=== PATIENT | female | born 1940 | race Caucasian/White ===

== ENCOUNTER 2020-09-01 10:14 | Emergency (ER) | payer MEDICARE, OTHER ==
[2020-09-01] MEDS ORDERED: Sodium Chloride 0.9% 10 ML Syringe FLUSH PRN (10:47)
[2020-09-01] MEDS ORDERED: Nitroglycerin 0.4 MG Tab.SL SL ONE (10:47)
[2020-09-01] MEDS ORDERED: Morphine 2 MG/ML SYRINGE IVPUSH ONE (11:04)
--- NOTE | 2020-09-01 11:57 | CR ---
Chest: Portable view of the chest was obtained. Comparison: No prior chest imaging is available. Soft tissue density is suggested behind the heart possibly due to moderate sized hiatal hernia. Heart is mildly enlarged. Upper mediastinum is within normal limits. Unichamber pacemaker is noted. Lungs are clear with no acute parenchymal change. Scattered disc space narrowing and endplate spurring is noted within the spine. Mild degenerative change is seen within both shoulders. Impression: 1. Possible hiatal hernia. Heart size may be slightly enlarged. Unichamber pacemaker is noted. 2. Nothing acute is appreciated. Diagnostic code #2
--- NOTE | 2020-09-01 13:29 | EDM.PDOC ---
ED HPI GENERAL MEDICAL PROBLEM - General Chief Complaint: Chest Pain Stated Complaint: CHEST PAIN Time Seen by Provider: 09/01/20 10:29 Source of Information: Reports: Patient, Family History Limitations: Reports: No Limitations - History of Present Illness INITIAL COMMENTS - FREE TEXT/NARRATIVE: The patient presents with mid sternal chest pain. This work her up this morning. She has no shortness of breath with it. She has no fever, chills, cough, abdominal pain, nausea or vomiting. She does have a pacemaker. She does not smoke. She has a history of atrial fibrillation. She is on eliquis. Onset: Sudden Duration: Hour(s): Location: Reports: Chest Quality: Reports: Pressure Severity: Mild Improves with: Reports: None Worsens with: Reports: None Associated Symptoms: Reports: Chest Pain. Denies: Cough, Fever/Chills, Headaches, Nausea/Vomiting, Shortness of Breath Chest Pain Score (Numeric/FACES): 8 - Related Data Allergies Allergy/AdvReac Type Severity Reaction Status Date / Time No Known Allergies Allergy Verified 09/01/20 10:32 Home Meds: Home Meds Apixaban [Eliquis] 5 mg PO BID 09/01/20 [History] Cholecalciferol (Vitamin D3) [Vitamin D3] 2,000 units PO DAILY 09/01/20 [History] Cyanocobalamin (Vitamin B-12) [Vitamin B-12] 1,000 mcg PO DAILY 09/01/20 [History] Donepezil HCl [Aricept] 10 mg PO QPM 09/01/20 [History] Escitalopram Oxalate 10 mg PO QPM 09/01/20 [History] Ferrous Sulfate [Iron] 325 mg PO DAILY 09/01/20 [History] LORazepam [Ativan] 1 mg PO Q8H PRN 09/01/20 [History] Latanoprost [Xalatan 0.005% Ophth Soln] 1 drop EYERT BEDTIME 09/01/20 [History] Meclizine HCl 25 mg PO TID PRN 09/01/20 [History] Nitroglycerin 0.4 mg SL Q5M PRN 09/01/20 [History] Omeprazole 20 mg PO DAILY 09/01/20 [History] Polyvinyl Alcohol/Povidone/Pf [Refresh Classic Eye Drops] 1 drop EYERT DAILY PRN 09/01/20 [History] QUEtiapine Fumarate [Seroquel] 50 mg PO BEDTIME 09/01/20 [History] QUEtiapine Fumarate [Seroquel] 50 mg PO DAILY PRN 09/01/20 [History] amLODIPine Besylate [Amlodipine Besylate] 10 mg PO DAILY 09/01/20 [History] atorvaSTATin [Lipitor] 40 mg PO QPM 09/01/20 [History] cycloSPORINE [Restasis Multidose] 1 drop EYERT DAILY 09/01/20 [History] Past Medical History Cardiovascular History: Reports: Afib, Pacemaker 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: Social & Family History - Tobacco Use Tobacco Use Status *Q: Never Tobacco User ED ROS GENERAL - Review of Systems Review Of Systems: See Below Constitutional: Reports: No Symptoms HEENT: Reports: No Symptoms Respiratory: Reports: No Symptoms Cardiovascular: Reports: Chest Pain Endocrine: Reports: No Symptoms GI/Abdominal: Reports: No Symptoms : Reports: No Symptoms ED EXAM, GENERAL - Physical Exam Exam: See Below Exam Limited By: No Limitations General Appearance: Alert, No Apparent Distress Ears: Normal External Exam Nose: Normal Inspection Head: Atraumatic, Normocephalic Neck: Normal Inspection Respiratory/Chest: No Respiratory Distress, Lungs Clear, Normal Breath Sounds Cardiovascular: Regular Rate, Rhythm, No Edema, No Murmur GI/Abdominal: Soft, Non-Tender, No Organomegaly, No Mass Back Exam: Normal Inspection Extremities: Normal Inspection Neurological: Alert, Oriented, No Motor/Sensory Deficits #1 Interpretation EKG Date: 09/01/20 Time: 10:30 Rhythm: Other (ventricular paced complexes) Rate (Beats/Min): 67 [place]: Normal QRS: Normal ST-T: Normal QT: Normal Course - Vital Signs Last Recorded V/S: Last Vital Signs Temp 97.8 F 09/01/20 10:30 Pulse 74 09/01/20 10:30 Resp 18 09/01/20 10:30 BP 93/53 L 09/01/20 10:30 Pulse Ox 98 09/01/20 10:30 - Orders/Labs/Meds Orders: Active Orders 24 hr Category Date Time Status Cardiac Monitoring [RC] . DIRECTED Care 09/01/20 10:47 Active EKG Documentation Completion [RC] STAT Care 09/01/20 10:48 Active Peripheral IV Care [RC] . DIRECTED Care 09/01/20 10:47 Active PRO B-TYPE NATRIUR PEPT,BNPPRO [CHEM] Stat Lab 09/01/20 11:19 Received TROPONIN I [CHEM] Stat Lab 09/01/20 13:19 Received Sodium Chloride 0.9% [Saline Flush] Med 09/01/20 10:47 Active 10 ml FLUSH ASDIRECTED PRN Peripheral IV Insertion Adult [OM.PC] Stat Oth 09/01/20 10:47 Ordered Medication Orders Sodium Chloride (Sodium Chloride 0.9% 10 Ml Syringe) 10 ml FLUSH ASDIRECTED PRN PRN Reason: Keep Vein Open Last Admin: 09/01/20 11:29 Dose: 10 ml Documented by: TAMMIE Labs: Laboratory Tests 09/01/20 09/01/20 09/01/20 Range/Units 11:19 11:19 11:19 WBC 6.90 (3.98-10.04) K/mm3 RBC 3.82 L (3.98-5.22) M/mm3 Hgb 11.4 (11.2-15.7) gm/dl Hct 35.1 (34.1-44.9) % MCV 91.9 (79.4-94.8) fl MCH 29.8 (25.6-32.2) pg MCHC 32.5 (32.2-35.5) g/dl RDW Std Deviation 44.6 (36.4-46.3) fL Plt Count 294 (182-369) K/mm3 MPV 9.9 (9.4-12.3) fl Neut % (Auto) 65.8 (34.0-71.1) % Lymph % (Auto) 22.2 (19.3-51.7) % [place] % (Auto) 9.9 (4.7-12.5) % Eos % (Auto) 1.7 (0.7-5.8) Baso % (Auto) 0.4 (0.1-1.2) % Neut # (Auto) 4.54 (1.56-6.13) K/mm3 Lymph # (Auto) 1.53 (1.18-3.74) K/mm3 [place] # (Auto) 0.68 H (0.24-0.36) K/mm3 Eos # (Auto) 0.12 (0.04-0.36) K/mm3 Baso # (Auto) 0.03 (0.01-0.08) K/mm3 D-Dimer, Quantitative 0.65 H (0.19-0.50) mg/L Sodium 145 (136-145) mEq/L Potassium 3.2 L (3.5-5.1) mEq/L Chloride 105 (98-107) mEq/L Carbon Dioxide 28 (21-32) mEq/L Anion Gap 15.2 H (5-15) BUN 17 (7-18) mg/dL Creatinine 1.4 H (0.55-1.02) mg/dL Est Cr Clr Drug Dosing 26.62 mL/min Estimated GFR (MDRD) 36 (>60) mL/min BUN/Creatinine Ratio 12.1 L (14-18) Glucose 119 H (70-99) mg/dL Calcium 8.4 L (8.5-10.1) mg/dL Total Bilirubin 1.8 H (0.2-1.0) mg/dL AST 18 (15-37) U/L ALT 18 (14-59) U/L Alkaline Phosphatase 68 (46-116) U/L Troponin I < 0.017 (0.00-0.056) ng/mL Total Protein 6.3 L (6.4-8.2) g/dl Albumin 3.1 L (3.4-5.0) g/dl Globulin 3.2 gm/dL Albumin/Globulin Ratio 1.0 (1-2) Meds: Medications Generic Name Dose Route Start Last Admin Trade Name Freq PRN Reason Stop Dose Admin Sodium Chloride 10 ml 09/01/20 10:47 09/01/20 11:29 Sodium Chloride 0.9% 10 Ml Syringe FLUSH 10 ml ASDIRECTED PRN Administration Keep Vein Open Discontinued Medications Generic Name Dose Route Start Last Admin Trade Name Freq PRN Reason Stop Dose Admin Morphine Sulfate 2 mg 09/01/20 11:04 09/01/20 11:26 Morphine 2 Mg/Ml Syringe IVPUSH 09/01/20 11:05 2 mg ONETIME ONE Administration Nitroglycerin 0.4 mg 09/01/20 10:47 09/01/20 11:29 Nitroglycerin 0.4 Mg Tab.Sl SL 09/01/20 10:48 Not Given ONETIME ONE - Re-Assessments/Exams Free Text/Narrative Re-Assessment/Exam: 09/01/20 13:27 I ordered an IV saline lock, EKG, CXR, labs and morphine 2mg IV. Her EKG shows a paced rhythm. Her CBC looks good. Her D-dimer is slightly elevated at 0.65. Her K is a little low at 3.2. Her anion gap is elevated at 15.2. Her creatinine is elevated at 1.4. Her total bili is elevated at 1.8. Her troponin is negative. Her CXR shows a hiatal hernia. I will do a repeat troponin. Departure - Departure Time of Disposition: 13:30 Disposition: Home, Self-Care 01 Condition: Good Clinical Impression: Atypical chest pain Referrals: Jocelyn Villanueva MD [Primary Care Provider] - 1 Week Additional Instructions: Go home and rest. Take your home medications as prescribed. Follow up with your doctor within a week. Please return if you are worse. I will call you the repeat troponin and BNP. Sepsis Event Note (ED) - Evaluation Sepsis Screening Result: No Definite Risk - Focused Exam Vital Signs: Vital Signs Temp Pulse Resp BP Pulse Ox 09/01/20 10:30 97.8 F 74 18 93/53 L 98 - My Orders Last 24 Hours: My Active Orders 09/01/20 10:47 Cardiac Monitoring [RC] . DIRECTED Peripheral IV Care [RC] . DIRECTED Sodium Chloride 0.9% [Saline Flush] 10 ml FLUSH ASDIRECTED PRN Peripheral IV Insertion Adult [OM.PC] Stat 09/01/20 10:48 EKG Documentation Completion [RC] STAT 09/01/20 11:19 PRO B-TYPE NATRIUR PEPT,BNPPRO [CHEM] Stat 09/01/20 13:19 TROPONIN I [CHEM] Stat - Assessment/Plan Last 24 Hours: My Active Orders 09/01/20 10:47 Cardiac Monitoring [RC] . DIRECTED Peripheral IV Care [RC] . DIRECTED Sodium Chloride 0.9% [Saline Flush] 10 ml FLUSH ASDIRECTED PRN Peripheral IV Insertion Adult [OM.PC] Stat 09/01/20 10:48 EKG Documentation Completion [RC] STAT 09/01/20 11:19 PRO B-TYPE NATRIUR PEPT,BNPPRO [CHEM] Stat 09/01/20 13:19 TROPONIN I [CHEM] Stat
== END 2020-09-01 13:42 | disposition home or self-care (01) ==
LOC: JD.ED 10:14
DX: R07.89 Other chest pain (principal); I48.91 Unspecified atrial fibrillation; Z95.0 Presence of cardiac pacemaker; Z79.01 Long term (current) use of anticoagulants; Z79.899 Other long term (current) drug therapy
CPT/HCPCS: 36415; 71045; 80053; 83880; 84484; 85025; 85379; 93005; 96374; 99285; J2270; 93010; 99284; A9270-GY